=== PATIENT | male | born 1955 | race Caucasian/White ===

== ENCOUNTER 2021-08-01 10:05 | Outpatient (REF) | payer MEDICARE, SELFPAY ==
[2021-08-01 11:07] LABS: Hematocrit 49.1 % (42.0-52.0); Hemoglobin 16.3 g/dl (14.0-18.0); Mean Corpuscular HGB Conc 33.2 g/dl (31.0-36.0); Mean Corpuscular Hemoglobin 30.1 pg (27.0-33.0); Mean Corpuscular Volume 90.8 fL (80.0-98.0); Mean Platelet Volume 9.6 fL (9.4-12.4); Platelet Count 224 X10*3/uL (160-400); Red Blood Count 5.41 X10*6/uL (4.60-5.80); Red Cell Distribution Width 13.3 % (11.0-16.0); White Blood Count 6.8 X10*3/uL (4.8-10.8)
[2021-08-01 11:18] LABS: Appearance Urine CLEAR; Color Urine YELLOW; Glucose Urine UA NEG (NEG); Leukocyte Esterase Urine NEG (NEG); Nitrite Urine NEG (NEG); Urine Blood NEG (NEG); Urine Ketones NEG (NEG); Urine Protein NEG (NEG-TRACE)
[2021-08-01 11:45] LABS: Alanine Aminotransferase 20 U/L (0-40); Alkaline Phosphatase 107 U/L (39-117); Anion Gap 9 (12-20); Aspartate Amino Transferase 17 U/L (5-37); Bilirubin Total 0.7 mg/dL (0.0-1.0); Blood Urea Nitrogen 13 mg/dL (9-16); Calcium 8.6 mg/dL (8.4-10.2); Carbon Dioxide 24 mmol/L (22-29); Chloride 106 mmol/L (96-108); Cholesterol 202 mg/dL; Estimated Glomerular Filt Rate > 60; Glucose Fasting 98 mg/dL (60-99); HDL Cholesterol 34 mg/dL; LDL Cholesterol Calculated 150 mg/dl; Potassium 4.2 mmol/L (3.3-5.1); Sodium 135 mmol/L (135-145); Triglycerides 92 mg/dL
[2021-08-01 11:54] LABS: Prostate Specific Antigen Scr 0.78 ng/mL (<0.05-4.0)
[2021-08-01 12:09] LABS: RBC Urine 0 /HPF (0); WBC Urine 0 /HPF (0-4)
[2021-08-07 14:26] LABS: Testosterone, Free 58.8 pg/mL (35.0-155.0); Testosterone, Total 459 ng/dL (250-1100)
== END 2021-08-01 10:06 | disposition home or self-care (01) ==
LOC: HO.HMGCLDS 10:05
PROVIDERS: PCP Internal Medicine; Visit Provider Internal Medicine
DX: Z12.5 Encounter for screening for malignant neoplasm of prostate (principal); R07.9 Chest pain, unspecified; E78.5 Hyperlipidemia, unspecified; R09.89 Other specified symptoms and signs involving the circulatory and respiratory systems
CPT/HCPCS: 36415; 80053; 80061; 81001; 84153; 84402; 84403; 85027

== ENCOUNTER → 2021-08-21 10:24 | Outpatient (REF) | payer MEDICARE, SELFPAY ==
--- NOTE | ~2021-08-21 | US_ITS ---
EXAMINATION: US EXTRACRANIAL CAROTID DUPLEX, BILATERAL CLINICAL INFORMATION: Hyperlipidemia, unspecified COMPARISON: None TECHNIQUE: Real-time ultrasound and Doppler techniques (integrating B-mode 2-D vascular images, Doppler spectral analysis and color-flow Doppler imaging) were utilized to interrogate the extracranial carotid arteries, the vertebral arteries and proximal subclavian arteries bilaterally. The degree of stenosis is determined by criteria similar to NASCET. FINDINGS: Right Side: 1. There is mild atherosclerotic plaque seen in the bifurcation/proximal ICA region. 2. The common carotid artery PSV proximally is 99 cm/s and distally 82 cm/s. 3. The proximal internal carotid artery velocities are 94 cm/s systolic and 32 cm/s diastolic. 4. The proximal external carotid artery PSV is 157 cm/s. 5. The vertebral artery shows antegrade flow. 6. The subclavian artery waveforms are normal. 7. Adjacent to the proximal right internal carotid artery there is a 2.6 x 0.9 x 1.0 cm lymph node with preserved fatty jamel. Left Side: 1. There is mild atherosclerotic plaque seen in the bifurcation/proximal ICA region. 2. The common carotid artery PSV proximally is 108 cm/s and distally 94 cm/s. 3. The proximal internal carotid artery velocities are 83 cm/s systolic and 87 cm/s diastolic. 4. The proximal external carotid artery PSV is 156 cm/s. 5. The vertebral artery is not visualized. 6. The subclavian artery waveforms are normal. 7. There is a left neck lymph node measuring 2.3 x 0.4 x 1.2 cm. US/US carotid duplex BI IMPRESSION: 1. RIGHT: Minimal, non-hemodynamically significant stenosis of the proximal right internal carotid artery corresponding to a 0-49% stenosis by velocity criteria. 2. LEFT: Minimal, non-hemodynamically significant stenosis of the proximal left internal carotid artery corresponding to a 0-49% stenosis by velocity criteria. 3. The left vertebral artery is not visualized. 4. Nonspecific lymph nodes in the bilateral neck measuring up to 2.6 cm in long axis on the right and 2.3 cm in long axis on the left..
--- NOTE | 2021-08-21 10:41 | CA_ITS ---
Acquisition Time: 2021-08-21 11:36:51 Total Exercise Time: 00:05:01 Test Indications: UNSPECIFIED CHEST PAIN Medications: Protocol: PATI Max HR: 139 BPM 90% of Pred: 154 BPM Max BP: 178/090 mmHG Max Work Load: 7.0 METS Exercise stress test with exercise 5 min 1 sec of Pati protocol, with moderate shortness of breath, 1/10 left chest pressure, with frequent isolated multifocal PVCs, cuplets and one 3 beat VT, with normotensive response to exercise, without EKG changes meeting criteria for ischemia. Test reviewed with Dr Schwab. Msg sent to Dr aMgana with recommendation for exercise nuclear stress test and echocardiogram. Referred By: Gina Magana Overread By: LEONARDO LANDEROS
== END ==
LOC: HO.CARD 10:24
PROVIDERS: PCP Internal Medicine; Visit Provider Internal Medicine
DX: E78.5 Hyperlipidemia, unspecified (principal); R07.9 Chest pain, unspecified; R09.89 Other specified symptoms and signs involving the circulatory and respiratory systems
CPT/HCPCS: 93017; 93880

== ENCOUNTER → 2021-09-20 09:17 | Outpatient (REF) | payer MEDICARE, SELFPAY ==
--- NOTE | ~2021-09-20 | NM_ITS ---
Exercise Myocardial perfusion study Indication: Abnormal EKG to evaluate for myocardial ischemia Technique: The patient was brought in for an exercise perfusion study on 09/20/2021. Patient performed exercise as per Brandin protocol and was injected 35 mCi of sestamibi was given intravenously one target HR was achieved. Images were obtained using the SPECT gamma camera interlaced with the gating device. Images were obtained in supine position. Resting perfusion study was performed on 09/24/2021. Patient was administered 35 mCi of sestamibi intravenously at rest. Images were then obtained in supine position. Images obtained with and without CT attenuation. Total DLP 100 mGy-cm. Images were processed with the software and compared side to side in short axis, horizontal long axis and vertical long axis views. Findings: The stress perfusion study showed non attenuated images are suboptimal due to subdiaphragmatic uptake. However this shows mildly reduced uptake in the moderate basal inferior wall of the LV myocardium. Myocardium normally perfused. Attenuation corrected images show moderately reduced uptake in the inferior wall of the LV myocardium.. The gated study shows reduced LV systolic function with calculated LVEF of 45%. LV cavity is mildly dilated in size. The gated study shows normal wall thickening and contraction of all segments. There is no transient ischemic dilation. Resting study shows nontender images show improved uptake in the basal inferior and mid inferior wall of the LV myocardium. Gating at rest reveals normal systolic wall motion with ejection fraction at 40%. The findings are consistent with reversible defect of the basal inferior wall suggestive of ischemia.. NM/NM cardiolite stress test Impression: 1. Basal inferior ischemia 2. Gated LVEF is 45% 3. Transient ischemic dilatation not present Stress EKG is negative for ischemia
--- NOTE | 2021-09-20 10:00 | CA_ITS ---
Acquisition Time: 2021-09-20 09:49:47 Total Exercise Time: 00:07:10 Test Indications: Hyperlipidemia Medications: Protocol: PATI Max HR: 139 BPM 90% of Pred: 154 BPM Max BP: 172/082 mmHG Max Work Load: 8.8 METS Exercise stress test with exercise 7 min 10 sec of Pati protocol, with moderate shortness of breath, no chest discomfort, with isolated PVCs and one ventricular cuplet ( less PVCs then prior ETT), with nomotensive response response to exercise, without EKG changes meeting criteria for ischemia. Nuclear images pending. Test reviewed with Dr Spann. Referred By: Gina Magana Overread By: LEONARDO LANDEROS
== END ==
LOC: HO.CARD 09:17
PROVIDERS: Visit Provider Internal Medicine
DX: R07.9 Chest pain, unspecified (principal); E78.5 Hyperlipidemia, unspecified; R09.89 Other specified symptoms and signs involving the circulatory and respiratory systems
CPT/HCPCS: 78452; 93017; A9500

== ENCOUNTER 2021-11-29 09:38 | Outpatient (REF) | payer MEDICARE, SELFPAY ==
[2021-11-29 12:28] LABS: Alanine Aminotransferase 20 U/L (0-40); Alkaline Phosphatase 96 U/L (39-117); Anion Gap 8 (12-20); Aspartate Amino Transferase 18 U/L (5-37); Bilirubin Total 0.4 mg/dL (0.0-1.0); Blood Urea Nitrogen 18 mg/dL (9-16); Calcium 8.8 mg/dL (8.4-10.2); Carbon Dioxide 28 mmol/L (22-29); Chloride 106 mmol/L (96-108); Cholesterol 189 mg/dL; Estimated Glomerular Filt Rate > 60; Glucose Fasting 126 mg/dL (60-99); HDL Cholesterol 40 mg/dL; LDL Cholesterol Calculated 139 mg/dl; Potassium 4.6 mmol/L (3.3-5.1); Sodium 137 mmol/L (135-145); Triglycerides 54 mg/dL
== END 2021-11-29 09:39 | disposition home or self-care (01) ==
LOC: HO.HMGCLDS 09:38
PROVIDERS: Visit Provider Internal Medicine
DX: E78.5 Hyperlipidemia, unspecified (principal)
CPT/HCPCS: 36415; 80053; 80061

== ENCOUNTER 2022-03-24 10:37 | Outpatient (REF) | payer MEDICARE, SELFPAY ==
[2022-03-24 11:39] LABS: Estimated Average Glucose 111 mg/dL; Hemoglobin A1C 150.0711 umol/L; Hemoglobin A1c % 5.5 %
[2022-03-24 12:21] LABS: Alanine Aminotransferase 16 U/L (0-40); Albumin Level 4.3 g/dL (3.5-5.0); Alkaline Phosphatase 99 U/L (39-117); Aspartate Amino Transferase 17 U/L (5-37); Bilirubin Direct 0.2 mg/dL (0.0-0.5); Bilirubin Total 0.5 mg/dL (0.0-1.0); Total Protein 7.2 g/dL (6.5-8.0)
[2022-03-24 12:25] LABS: Alanine Aminotransferase 16 U/L (0-40); Albumin Level 4.3 g/dL (3.5-5.0); Alkaline Phosphatase 96 U/L (39-117); Anion Gap 16 (12-20); Aspartate Amino Transferase 17 U/L (5-37); Bilirubin Total 0.5 mg/dL (0.0-1.0); Blood Urea Nitrogen 12 mg/dL (9-16); Calcium 9.1 mg/dL (8.4-10.2); Carbon Dioxide 23 mmol/L (22-29); Chloride 106 mmol/L (96-108); Cholesterol 184 mg/dL; Estimated Glomerular Filt Rate > 60; Glucose Fasting 104 mg/dL (60-99); HDL Cholesterol 45 mg/dL; LDL Cholesterol Calculated 128 mg/dl; Potassium 4.7 mmol/L (3.3-5.1); Sodium 140 mmol/L (135-145); Total Protein 7.3 g/dL (6.5-8.0); Triglycerides 59 mg/dL
== END 2022-03-24 10:38 | disposition home or self-care (01) ==
LOC: HO.HMGCLDS 10:37
PROVIDERS: Absent Provider Podiatrist; PCP Internal Medicine; Visit Provider Internal Medicine
DX: Z00.00 Encounter for general adult medical examination without abnormal findings (principal); B35.1 Tinea unguium; E78.5 Hyperlipidemia, unspecified; R73.9 Hyperglycemia, unspecified
CPT/HCPCS: 36415; 80053; 80061; 80076; 82248; 83036

== ENCOUNTER 2022-09-12 08:54 | Outpatient (REF) | payer MEDICARE, SELFPAY ==
[2022-09-12 11:31] LABS: MANUAL DIFF FLAG NO
[2022-09-12 11:55] LABS: Basophils Absolute Auto 0.1 X10*3/uL (0.0-0.2); Basophils Percent Auto 0.8 % (0-2); Eosinophils Absolute Auto 0.1 X10*3/uL (0.0-0.4); Hematocrit 48.7 % (42.0-52.0); Hemoglobin 16.4 g/dl (14.0-18.0); Imm Gran Abs Auto 0.04 X10*3/uL (0.00-0.03); Imm Gran Pct Auto 0.6 % (0.0-0.4); Lymphocytes Absolute Auto 1.8 X10*3/uL (1.2-4.9); Lymphocytes Percent Auto 26.7 % (20-40); Mean Corpuscular HGB Conc 33.7 g/dl (31.0-36.0); Mean Corpuscular Hemoglobin 30.5 pg (27.0-33.0); Mean Corpuscular Volume 90.5 fL (80.0-98.0); Mean Platelet Volume 9.5 fL (9.4-12.4); Monocytes Absolute Auto 0.4 X10*3/uL (0.1-1.2); Monocytes Percent Auto 6.5 % (2-11); Neutrophils Absolute Auto 4.2 x10*3/uL (2.0-8.3); Neutrophils Percent Auto 63.4 % (45-73); Platelet Count 249 X10*3/uL (160-400); Red Blood Count 5.38 X10*6/uL (4.60-5.80); Red Cell Distribution Width 12.7 % (11.0-16.0); White Blood Count 6.7 X10*3/uL (4.8-10.8)
[2022-09-12 12:02] LABS: Estimated Average Glucose 126 mg/dL
[2022-09-12 12:15] LABS: Alanine Aminotransferase 18 U/L (0-40); Albumin Level 4.3 g/dL (3.5-5.0); Alkaline Phosphatase 93 U/L (39-117); Anion Gap 13 (12-20); Aspartate Amino Transferase 17 U/L (5-37); Bilirubin Total 0.5 mg/dL (0.0-1.0); Blood Urea Nitrogen 14 mg/dL (9-16); Calcium 9.1 mg/dL (8.4-10.2); Carbon Dioxide 24 mmol/L (22-29); Chloride 109 mmol/L (96-108); Cholesterol 164 mg/dL; Estimated Glomerular Filt Rate > 60; Glucose Fasting 124 mg/dL (60-99); HDL Cholesterol 45 mg/dL; LDL Cholesterol Calculated 109 mg/dl; Potassium 4.8 mmol/L (3.3-5.1); Sodium 141 mmol/L (135-145); Triglycerides 50 mg/dL
[2022-09-22 13:08] LABS: Testosterone, Total 399 ng/dL (250-1100)
== END 2022-09-12 08:55 | disposition home or self-care (01) ==
LOC: HO.HMGCLDS 08:54
PROVIDERS: PCP Internal Medicine; Visit Provider Internal Medicine
DX: Z00.00 Encounter for general adult medical examination without abnormal findings (principal); N52.9 Male erectile dysfunction, unspecified; E78.5 Hyperlipidemia, unspecified; R73.9 Hyperglycemia, unspecified
CPT/HCPCS: 36415; 80053; 80061; 83036; 84402; 84403; 85025

== ENCOUNTER 2023-05-18 12:36 | Outpatient (AMB) | payer MEDICARE, SELFPAY ==
--- NOTE | 2023-05-18 12:43 | A.OFFPC_ITS ---
Vital Signs 05/18/23 12:45 Height 6 ft 2 in Weight 229 lb BMI 29.4 BP 124/82 Blood Pressure Location Rt brachial Position Sitting Pulse 64 Pulse Source Pulse Oximeter Pulse Oximetry (%) 97 Oxygen Delivery Method Room Air Intake Visit Reasons: lower back pain Allergies No Known Allergies Allergy (Verified 05/18/23 12:46) Medication List - Last Reconciled 05/18/23 by Gina Magana MD aspirin 81 mg PO DAILY rosuvastatin 40 mg PO DAILY tadalafil (Cialis) 20 mg PO DAILY Tobacco use date assessed: 05/18/23 Fall risk assessment: No Falls in past year Last assessed Fall Risk: 05/18/23 Dental Screening Dental Screen Date: 05/18/23 Did you have a dental visit in the last 12 months?: Yes Did you have a dental problem in the last 6 months where you did not have access to dental care?: No Was dental information given to patient?: Patient has dentist HPI lower back pain HPI Details Pt c/o chronic LBP L side not radiating, getting worse for a few months and when twisting body playing golf, working in the yard, sitting for a long time on plane ride. Patient denies any weakness or numbness in extremities. [facility] Medical History Hyperglycemia Onychomycosis Bilateral carotid bruits Chest pain Hyperlipidemia Otitis externa of left ear Positional vertigo Hypogonadism Annual physical exam Surgical History History of right hip replacement Family History Father No problems noted. Mother No problems noted. Social History Housing: House Patient Tobacco Use Status: Former Tobacco user Quit Date: 14 years ago e-Cigarette/Vaping Use: Never Used Current occupational status: unemployed Cognitive needs: No Hearing needs: No Vision needs: Yes Questionnaire Thrive Questionnaire Date Thrive assessed: 12/04/21 PHIL-7 AMB Questionnaire PHIL-7 Date PHIL - 7 assessed: 12/04/21 Source: Developed by Drs. Ari Wood, Luh Gonzales, Wade Walsh and colleagues, with an educational joel from [employer]. Review of Systems Const All systems reviewed & are unremarkable except as noted in HPI and below Reports no additional complaints Eyes Reports no additional complaints ENT Reports no additional complaints Card Reports no additional complaints Resp Reports no additional complaints GI Reports no additional complaints Reports no additional complaints Physical exam (Primary Care) Vital Signs: Last Vital Signs Pulse 64 05/18/23 12:45 BP 124/82 05/18/23 12:45 Pulse Ox 97 05/18/23 12:45 Oxygen Delivery Method Room Air 05/18/23 12:45 BMI result Body Mass Index 29.4 Tobacco/Smoking Status: Tobacco use Status Tobacco use date assessed 05/18/23 05/18/23 12:49 Patient Tobacco Use Status Former Tobacco user 05/18/23 12:43 e-Cigarette/Vaping Use Never Used 05/18/23 12:43 Thrive Assessment: Date of Thrive Assessment Date Thrive assessed 12/04/21 05/18/23 12:43 Const General: no acute distress HENMT Head: Yes normal to inspection General nose exam: Normal external nose present Face and sinus: Yes normal facial exam Throat: Yes posterior oropharynx normal Neck Neck: Yes no lymphadenopathy and Yes supple Resp Effort & Inspection: normal respiratory effort Auscultation: clear to auscultation bilaterally Cardio Rhythm: regular rhythm Heart sounds: S1 normal heart sound present and S2 normal heart sound present GI Inspection: Yes normal to inspection Back/Spine/Pelvis Other: Paraspinal tenderness in lower lumbar region right more than left again, straight leg rising 90 degrees bilaterally. Deep tendon reflexes 2+ bilaterally, motor strength 5/5 bilaterally Extrem General: Yes no clubbing, cyanosis or edema Assessment and Plan Assessment & Plan (1) Lower back pain: Code(s): M54.50 - Low back pain, unspecified Plan: Patient will be referred to physical therapy. He made an appointment with a chiropractor. Orders: Orders XR lumbar spine 2-3V Today M54.50 - Low back pain, unspecified PT Evaluation and Treatment Today M54.50 - Low back pain, unspecified Coding Level of Care Code Est Pt Level 3 (91761) Diagnoses Lower back pain M54.50
[2023-05-18 12:45] VITALS: BP 124/82; PULSE 64; O2SAT 97; BMI 29.4
== END 2023-05-18 13:38 | disposition home or self-care (01) ==
PROVIDERS: PCP Internal Medicine; Visit Provider Internal Medicine
DX: M54.50 Low back pain, unspecified (principal)
CPT/HCPCS: 99213

== ENCOUNTER 2023-05-18 13:24 | Outpatient (REF) | payer MEDICARE, SELFPAY ==
--- NOTE | ~2023-05-18 | XR_ITS ---
EXAMINATION: XR LUMBOSACRAL SPINE CLINICAL INFORMATION: Low back pain COMPARISON: None available. TECHNIQUE: Three views of the lumbosacral spine. FINDINGS: Large osteophytes are present at L2-L3, L3-L4 and L5-S1. Disc space narrowing is present at almost all levels. Vertebral body heights are well-maintained. No bony destructive lesions are seen. A right hip prosthesis is present. XR/XR lumbar spine 2-3V IMPRESSION: Degenerative changes in the lumbosacral spine as described above.
== END 2023-05-18 13:25 | disposition home or self-care (01) ==
LOC: HO.HMGCX 13:24
PROVIDERS: PCP Internal Medicine; Visit Provider Internal Medicine
DX: M54.50 Low back pain, unspecified (principal)
CPT/HCPCS: 72100

== ENCOUNTER 2024-06-03 12:55 | Outpatient (AMB) | payer MEDICARE, SELFPAY ==
--- NOTE | 2024-06-03 13:21 | MHC.PC.OV ---
Vital Signs 06/03/24 13:22 Height 6 ft 2 in Weight 233 lb BMI 29.9 BP 125/78 Blood Pressure Location Rt brachial Position Sitting Pulse 67 Pulse Source Pulse Oximeter Pulse Oximetry (%) 97 Oxygen Delivery Method Room Air Intake Visit Reasons: Annual PE Intake Note: pt is here for annual exam Allergies No Known Allergies Allergy (Verified 06/03/24 13:22) Medication List - Last Reconciled 06/03/24 by Gina Magana MD aspirin 81 mg PO DAILY rosuvastatin 40 mg PO DAILY tadalafil (Cialis) 20 mg PO DAILY Tobacco use date assessed: 06/03/24 Fall risk assessment: No Falls in past year Last assessed Fall Risk: 06/03/24 Dental Screening Dental Screen Date: 06/03/24 Did you have a dental visit in the last 12 months?: Yes Did you have a dental problem in the last 6 months where you did not have access to dental care?: No Was dental information given to patient?: Patient has dentist HPI Annual PE HPI Details Pt presents for PE. [facility] Medical History Hyperglycemia Onychomycosis Bilateral carotid bruits Chest pain Hyperlipidemia Otitis externa of left ear Positional vertigo Hypogonadism Annual physical exam Surgical History (Updated 06/03/24 @ 14:52 by Gina Magana MD) History of right hip replacement Family History Father No problems noted. Mother No problems noted. Social History Housing: House Patient Tobacco Use Status: Former Tobacco user e-Cigarette/Vaping Use: Never Used Current occupational status: unemployed Cognitive needs: No Hearing needs: No Vision needs: Yes Questionnaire Thrive Questionnaire Date Thrive assessed: 12/04/21 PHIL-7 AMB Questionnaire PHIL-7 Date PHIL - 7 assessed: 12/04/21 Source: Developed by Drs. Ari Wood, Luh Gonzales, Wade Walsh and colleagues, with an educational joel from [employer] Review of Systems Const All systems reviewed & are unremarkable except as noted in HPI and below Reports no additional complaints Eyes Reports no additional complaints ENT Reports no additional complaints Card Reports no additional complaints Resp Reports no additional complaints GI Reports no additional complaints Reports no additional complaints Physical exam (Primary Care) Vital Signs: Last Vital Signs Pulse 67 06/03/24 13:22 BP 140/78 H 06/03/24 13:22 Pulse Ox 97 06/03/24 13:22 Oxygen Delivery Method Room Air 06/03/24 13:22 BMI result Body Mass Index 29.9 Tobacco/Smoking Status: Tobacco use Status Tobacco use date assessed 06/03/24 06/03/24 13:23 Patient Tobacco Use Status Former Tobacco user 06/03/24 13:23 e-Cigarette/Vaping Use Never Used 06/03/24 13:23 Thrive Assessment: Date of Thrive Assessment Date Thrive assessed 12/04/21 06/03/24 13:23 Const General: no acute distress HENMT Head: Yes normal to inspection General nose exam: Normal external nose present Face and sinus: Yes normal facial exam Mouth: Normal oral and palatal mucosa present Throat: Yes posterior oropharynx normal Eyes General: appearance normal, both eyes and all related structures Neck Neck: Yes no lymphadenopathy and Yes supple Resp Effort & Inspection: normal respiratory effort Auscultation: clear to auscultation bilaterally Cardio Rhythm: regular rhythm Heart sounds: S1 normal heart sound present and S2 normal heart sound present GI Inspection: Yes normal to inspection Palpation (GI): Soft to palpation Percussion: Yes normal to percussion Auscultation: normal bowel sounds Coding Level of Care Code Est Pt Prev Care >65y(05557) Diagnoses Annual physical exam Z00.00 Hyperlipidemia E78.5 Hyperglycemia R73.9 Hypogonadism Hx of colonoscopy Z98.890 Assessment & Plan Assessment & Plan (1) Annual physical exam: Code(s): Z00.00 - Encounter for general adult medical examination without abnormal findings Category: Medical Plan: well balanced diet, regular exercise, weight loss discussed (2) Hyperlipidemia: Code(s): E78.5 - Hyperlipidemia, unspecified Category: Medical Plan: Continue statin (3) Hyperglycemia: Code(s): R73.9 - Hyperglycemia, unspecified Category: Medical Plan: ADA diet increase exercise weight loss discussed with the patient check A1c (4) Hypogonadism: Category: Medical Plan: check testosterone level (5) Hx of colonoscopy: Comment: 12/2022 1 polyp serrated adenoma, repeat 5 yrs, [facility] Code(s): Z98.890 - Other specified postprocedural states Category: Surgical Plan: Repeat colonoscopy in 4 yrs Orders: Orders Comprehensive [place]. Panel Fast Today E78.5 - Hyperlipidemia, unspecified, R73.9 - Hyperglycemia, unspecified, Z00.00 - Encounter for general adult medical examination without abnormal findings Hemoglobin A1c Today E78.5 - Hyperlipidemia, unspecified, R73.9 - Hyperglycemia, unspecified, Z00.00 - Encounter for general adult medical examination without abnormal findings PSA,Total (Free>4and<10) Today E78.5 - Hyperlipidemia, unspecified, R73.9 - Hyperglycemia, unspecified, Z00.00 - Encounter for general adult medical examination without abnormal findings UA w Microscopic Today E78.5 - Hyperlipidemia, unspecified, R73.9 - Hyperglycemia, unspecified, Z00.00 - Encounter for general adult medical examination without abnormal findings Testosterone, Free/Total Today Z00.00 - Encounter for general adult medical examination without abnormal findings Lipid Panel Today E78.5 - Hyperlipidemia, unspecified, R73.9 - Hyperglycemia, unspecified, Z00.00 - Encounter for general adult medical examination without abnormal findings Complete Blood Count Auto Diff Today E78.5 - Hyperlipidemia, unspecified, R73.9 - Hyperglycemia, unspecified, Z00.00 - Encounter for general adult medical examination without abnormal findings
[2024-06-03 13:22] VITALS: BP 125/78; PULSE 67; O2SAT 97; BMI 29.9
== END 2024-06-03 13:55 | disposition home or self-care (01) ==
LOC: HO.HMCC 12:55
PROVIDERS: PCP Internal Medicine; Visit Provider Internal Medicine
DX: Z00.00 Encounter for general adult medical examination without abnormal findings (principal); E78.5 Hyperlipidemia, unspecified; R73.9 Hyperglycemia, unspecified; Z98.890 Other specified postprocedural states

== ENCOUNTER → 2024-06-03 12:55 | Outpatient (BNVA) | payer MEDICARE, SELFPAY | PROVIDERS: PCP Internal Medicine; Visit Provider Internal Medicine | DX: Z00.01 Encounter for general adult medical examination with abnormal findings (principal); E78.5 Hyperlipidemia, unspecified; R73.9 Hyperglycemia, unspecified; Z98.890 Other specified postprocedural states | CPT/HCPCS: 99397 ==

== ENCOUNTER 2024-06-10 09:31 | Outpatient (REF) | payer MEDICARE, SELFPAY ==
[2024-06-10 10:10] LABS: Basophils Percent Auto 0.6 % (0-2); Eosinophils Absolute Auto 0.2 X10*3/uL (0.0-0.4); Eosinophils Percent Auto 3.4 % (0-4); Hematocrit 43.7 % (42.0-52.0); Hemoglobin 14.7 g/dl (14.0-18.0); Imm Gran Abs Auto 0.03 X10*3/uL (0.00-0.03); Imm Gran Pct Auto 0.4 % (0.0-0.4); Lymphocytes Absolute Auto 2.4 X10*3/uL (1.2-4.9); Lymphocytes Percent Auto 35.8 % (20-40); MANUAL DIFF FLAG NO; Mean Corpuscular HGB Conc 33.6 g/dl (31.0-36.0); Mean Corpuscular Hemoglobin 31.1 pg (27.0-33.0); Mean Corpuscular Volume 92.6 fL (80.0-98.0); Mean Platelet Volume 9.2 fL (9.4-12.4); Monocytes Absolute Auto 0.6 X10*3/uL (0.1-1.2); Monocytes Percent Auto 8.5 % (2-11); Neutrophils Absolute Auto 3.5 x10*3/uL (2.0-8.3); Neutrophils Percent Auto 51.3 % (45-73); Platelet Count 220 X10*3/uL (160-400); Red Blood Count 4.72 X10*6/uL (4.60-5.80); Red Cell Distribution Width 12.8 % (11.0-16.0); White Blood Count 6.7 X10*3/uL (4.8-10.8)
[2024-06-10 10:49] LABS: Appearance Urine Clear; Color Urine Yellow; Glucose Urine UA Negative (Negative); Leukocyte Esterase Urine Negative (Negative); Nitrite Urine Negative (Negative); Specific Gravity - Urine 1.015 (1.005-1.025); Urine Blood Negative (Negative); Urine Ketones Negative (Negative); Urine Protein Negative (Neg-Trace)
[2024-06-10 10:53] LABS: Bacteria Urine None Seen (None Seen); Hyaline Casts Urine 0-2 /LPF (0-2); RBC Urine 0-2 /HPF (0-2); Squamous Epithelial Cell Urine 0-2 /HPF (0-2); WBC Urine 0-5 /HPF (0-5)
[2024-06-10 11:26] LABS: Alanine Aminotransferase 21 U/L (0-40); Albumin Level 4.1 g/dL (3.5-5.0); Alkaline Phosphatase 80 U/L (39-117); Anion Gap 12 (12-20); Aspartate Amino Transferase 22 U/L (5-37); Bilirubin Total 0.4 mg/dL (0.0-1.0); Blood Urea Nitrogen 11 mg/dL (9-16); Carbon Dioxide 25 mmol/L (22-29); Chloride 108 mmol/L (96-108); Cholesterol 144 mg/dL (<200); Estimated Glomerular Filt Rate > 60; Glucose Fasting 116 mg/dL (60-99); HDL Cholesterol 36 mg/dL (>40); LDL Cholesterol Calculated 89 mg/dL (<100); Potassium 4.3 mmol/L (3.3-5.1); Sodium 141 mmol/L (135-145); Total Protein 7.1 g/dL (6.5-8.0); Triglycerides 98 mg/dL (<150)
[2024-06-10 12:03] LABS: PSA,Total (Free>4and<10) 0.47 ng/mL (0.00-4.00)
[2024-06-10 14:25] LABS: Estimated Average Glucose 126 mg/dL; Hemoglobin A1C 162.5643 umol/L; Total Hemoglobin (HGBA1C) 3910.4166 umol/L
[2024-06-16 21:23] LABS: Testosterone, Free 39.7 pg/mL (35.0-155.0); Testosterone, Total 274 ng/dL (250-1100)
== END 2024-06-10 09:32 | disposition home or self-care (01) ==
LOC: HO.LAB 09:31
PROVIDERS: PCP Internal Medicine; Visit Provider Internal Medicine
DX: Z00.00 Encounter for general adult medical examination without abnormal findings (principal); E78.5 Hyperlipidemia, unspecified; R73.9 Hyperglycemia, unspecified; Z12.5 Encounter for screening for malignant neoplasm of prostate
CPT/HCPCS: 36415; 80053; 80061; 81001; 83036; 84153; 84402; 84403; 85025

== ENCOUNTER 2025-06-22 10:54 | Outpatient (REF) | payer MEDICARE, SELFPAY ==
[2025-06-22 13:00] LABS: MANUAL DIFF FLAG NO
[2025-06-22 13:15] LABS: Hematocrit 45.6 % (42.0-52.0); Hemoglobin 15.2 g/dl (14.0-18.0); Imm Gran Abs Auto 0.03 X10*3/uL (0.00-0.03); Imm Gran Pct Auto 0.4 % (0.0-0.4); Lymphocytes Absolute Auto 2.8 X10*3/uL (1.2-4.9); Mean Corpuscular HGB Conc 33.3 g/dl (31.0-36.0); Mean Corpuscular Hemoglobin 31.5 pg (27.0-33.0); Mean Corpuscular Volume 94.6 fL (80.0-98.0); NRBC Abs Auto 0.000 X10*3/uL (0.0-0.012); NRBC Pct Auto 0.0 /100WBC (0.0-0.2); Platelet Count 215 X10*3/uL (160-400); Red Blood Count 4.82 X10*6/uL (4.60-5.80); White Blood Count 6.8 X10*3/uL (4.8-10.8)
[2025-06-22 13:35] LABS: Alanine Aminotransferase 26 U/L (0-40); Albumin Level 4.5 g/dL (3.5-5.0); Alkaline Phosphatase 85 U/L (39-117); Anion Gap 11 (12-20); Aspartate Amino Transferase 27 U/L (5-37); Blood Urea Nitrogen 15 mg/dL (9-16); Calcium 9.0 mg/dL (8.4-10.2); Carbon Dioxide 26 mmol/L (22-29); Chloride 109 mmol/L (96-108); Cholesterol 132 mg/dL (<200); Estimated Glomerular Filt Rate > 60; HDL Cholesterol 38 mg/dL (>40); Potassium 4.8 mmol/L (3.3-5.1); Sodium 141 mmol/L (135-145); Total Protein 7.3 g/dL (6.5-8.0); Triglycerides 105 mg/dL (<150)
[2025-06-22 13:37] LABS: Appearance Urine Clear; Glucose Urine UA Negative (Negative); PH 5.0 (5.0-9.0); Specific Gravity - Urine 1.020 (1.005-1.025)
[2025-06-22 14:13] LABS: PSA,Total (Free>4and<10) 0.52 ng/mL (0.00-4.00)
--- OUTSIDE RECORDS SUMMARY | 2025-06-22 17:58 | XMS_ITS | Data Portability ---
Author Organization [facility] Pain Managem ent, PAIN OFFICE Address [address] [facility] [place] [address] Care Team Providers Care Control Inspector Name Role Phone ROSSYazJALIL Primary Care Provider [phone] Assessment Encounter Date Assessment Date Assessment LastModified [...] booked for the same. He needs a electric mule driver on the day of the procedure. [...] By Organization Details Last Modified Time 10/12/2015 [id number] He was advised against bed rest lasting longer than four days and to continue activities as tolerated. [email or web address] Not available 10/15/2015 11:38:02 Reason for Referral None Reported. Problems Name Problem SNOMED Code Status Onset Date Resolution Date Notes Provider Name and Address Organization Details Recorded Time Pain of hip region 30759829 Active Robina zavala MD [address] [facility] , [address], [place], [address], [place] [facility] 6 11:39:07 Osteoarthritis of hip 948975509 Active Robina zavala MD [address] [facility] , [address], [place], [address] [place] [facility] 6 11:39:07 [...] Updated DateTime 10/12/2015 27 kg/m2 68 /min 27249.39 77 g 187.96 cm 135/80 mm[Hg] Maris Hardingzier [place] [facility] 10/12/2015 09:51:14 Social History Question Answer Notes LastModified by Organizat ion Details LastModified Time Tobacco Smoking Status Former Smoker Quit x 8 years Not Available [employer] 05/18/2020 03:16:10 Which Illicit Or Recreational Drugs Have You Used? No [id number] Information not available 05/18/2020 Education 12 With Some College [employer] [place] Information not available 10/12/2015 Live Alone Or With Others? Alone [place] Information not available 10/12/2015 Marital Status [employer] [place] [employer] not available 10/12/2015 How Many Years Have You Smoked Tobacco? 30 [id number] Information not available 05/18/2020 Sex: Unknown Functional Status Question Answer Note LastModified by Organization D etails LastModified Time What is your level of alcohol consumption? None [id number] Information not available 05/18/2020 Are you currently employed? No [id number] Information not available 05/18/2020 Mental Status None recorded. Family History Nothing Reported. Medical History Condition Response Arthritis Y Past Encounters Encounter ID Performer Location Encounter Start Date Encounter Closed Date Diagnosis/Indication Diagnosis SNOMED-CT Code Diagnosis ICD10 Code Diagnosis IMO Codes Diagnosis Note [id number] Robina Lee MD PAIN OFFICE [address] [place] [phone] 10/12/2015 09:30:25 10/15/2015 11:39:22 Osteoarthritis of hip 701606225 M16.0 Pain of hip region 98016 002 M25.551 Health Concerns Section Related Observation LastModified by Organization Detai ls LastModified Time None Recorded Concern Status LastModified by Organization Details LastModified Time None Recorded Advance Directives Directive None Recorded Payers Insurance Date Sequence Insurance Name Policy Number Policy Thakkar Covered Member ID Thakkar Member ID Guarantor Name 10/21/[address] [place] [address] [id number] Amando Borges [id number] Amando Borges Notes Date Note Type Note [...] pain for which he had surgery at [facility] with good resolution of symptoms. He [...] prescription for meloxicam yet. Robina Lee MD [address] [place] [address] , [address], [place], [address], [facility] 10/19/2015 09:34:39
[2025-06-30 21:38] LABS: Testosterone, Free 56.3 pg/mL (30.0-135.0)
== END 2025-06-22 10:55 | disposition home or self-care (01) ==
LOC: HO.HMGCLDS 10:54
PROVIDERS: PCP Internal Medicine; Visit Provider Internal Medicine
DX: Z00.00 Encounter for general adult medical examination without abnormal findings (principal); E78.5 Hyperlipidemia, unspecified; R73.9 Hyperglycemia, unspecified; Z98.890 Other specified postprocedural states; Z12.5 Encounter for screening for malignant neoplasm of prostate
CPT/HCPCS: 36415; 80053; 80061; 81001; 83036; 84153; 84402; 84403; 84443; 85025; 96127; 99397

== ENCOUNTER 2025-06-22 10:54 | Outpatient (AMB) | payer MEDICARE, SELFPAY ==
[2025-06-22 11:01] VITALS: BP 130/76; PULSE 80; O2SAT 97; BMI 29.5
--- NOTE | 2025-06-22 11:01 | MHC.PC.OV ---
Vital Signs 06/22/25 11:01 Height 6 ft 2 in Weight 230 lb BMI 29.5 BP 130/76 Blood Pressure Location Lt brachial Position Sitting Pulse 80 Pulse Source Pulse Oximeter Pulse Oximetry (%) 97 Oxygen Delivery Method Room Air Intake Visit Reasons: Annual PE Allergies No Known Allergies Allergy (Verified 06/22/25 11:02) Medication List - Last Reconciled 06/22/25 by Gina Magana MD aspirin 81 mg PO DAILY rosuvastatin 40 mg PO DAILY tadalafil (Cialis) 20 mg PO DAILY Tobacco use date assessed: 06/22/25 Fall risk assessment: No Falls in past year Last assessed Fall Risk: 06/22/25 Dental Screening Dental Screen Date: 06/22/25 Did you have a dental visit in the last 12 months?: Yes Did you have a dental problem in the last 6 months where you did not have access to dental care?: No Was dental information given to patient?: Patient has dentist HPI Annual PE HPI Details Patient presents for physical. He complains of general fatigue decreased sexual drive low energy level. Patient is concerned about low testosterone level. [facility] Medical History Hyperglycemia Onychomycosis Bilateral carotid bruits Chest pain Hyperlipidemia Otitis externa of left ear Positional vertigo Hypogonadism Annual physical exam Surgical History History of right hip replacement Family History Father No problems noted. Mother No problems noted. Social History Housing: House Patient Tobacco Use Status: Former Tobacco user e-Cigarette/Vaping Use: Never Used Current occupational status: unemployed Cognitive needs: No Hearing needs: No Vision needs: Yes Questionnaire PHQ-9 Over the last 2 weeks, how often have you been bothered by any of the following problems? 1. Little interest or pleasure in doing things: not at all 2. Feeling down, depressed, or hopeless: not at all 3. Trouble falling or staying asleep, or sleeping too much: not at all 4. Feeling tired or having little energy: not at all 5. Poor appetite or overeating: not at all 6. Feeling bad about yourself - or that you are a failure or have let yourself or your family down: not at all 7. Trouble concentrating on things, such as reading the newspaper or watching television: not at all 8. Moving or speaking so slowly that other people could have noticed. Or the opposite - being so fidgety or restless that you have been moving around a lot more than usual: not at all 9. Thoughts that you would be better off or of hurting yourself in some way: not at all Total score: 0 Depression Screening Interpretation: Negative Depression Screening Done: Yes 26824 - PHQ-9 Billing: Yes Source: Developed by Drs. Ari Wood, Luh Gonzales, Wade Walsh and colleagues, with an educational joel from [employer]. Thrive Questionnaire Date Thrive assessed: 06/22/25 I am a: Patient What is your living situation today?: I have a steady place to live Within the past 12 months, did the food you bought not last and you didn't have the money to get more?: Never true Within the past 12 months, did you worry whether your food would run out before you got money to buy more?: Never true Do you have trouble paying for medicines?: No Do you have trouble getting transportation to medical appointments?: No Do you have trouble paying your heating and electricity bill?: No Do you have trouble taking care of your child, family member or friend?: No Do you have trouble with day-to-day activities such as bathing, preparing meals, shopping, managing finances, etc.?: No Are you currently unemployed and looking for a job?: No Are you interested in more education?: No Please select the resources that you would like help with: None Currently or been in a relationship where the following occur: No concerns reported THRIVE Score: 0 AUDIT C Alcohol Use Questionnaire (AUDIT-C) 1. How often do you have a drink containing alcohol?: 2-4 times a month 2. How many drinks containing alcohol do you have on a typical day when you are drinking?: 1 or 2 3. How often do you have six or more drinks on one occasion?: Never Total Score: 2 Score Reviewed/Action Taken: Yes PHIL-7 AMB Questionnaire PHIL-7 Date PHIL - 7 assessed: 06/22/25 Feeling nervous, anxious, or on edge: 0 = Not at all Not being able to stop or control worryin = Not at all Worrying too much about different things: 0 = Not at all Trouble relaxin = Not at all Being so restless that it is hard to sit still: 0 = Not at all Becoming easily annoyed or irritable: 0 = Not at all Feeling afraid as if something awful might happen: 0 = Not at all Total PHIL-7 score (0-4 normal; 5-9 mild; 10-14 moderate; 15-21 severe): 0 Source: Developed by Drs. Ari Wood, Luh Gonzales, Wade Walsh and colleagues, with an educational joel from [employer]. PHIL-7 Assessment Billing PHIL-7 Assessment Tool: PHIL-7 Assessment 68629 Review of Systems Const All systems reviewed & are unremarkable except as noted in HPI and below Eyes Reports no additional complaints ENT Reports no additional complaints Card Reports no additional complaints Resp Reports no additional complaints GI Reports no additional complaints Reports no additional complaints Physical exam (Primary Care) Vital Signs: Last Vital Signs Pulse 80 06/22/25 11:01 BP 130/76 06/22/25 11:01 Pulse Ox 97 06/22/25 11:01 Oxygen Delivery Method Room Air 06/22/25 11:01 BMI result Body Mass Index 29.5 Tobacco/Smoking Status: Tobacco use Status Tobacco use date assessed 06/22/25 06/22/25 11:04 Patient Tobacco Use Status Former Tobacco user 06/22/25 11:04 e-Cigarette/Vaping Use Never Used 06/22/25 11:04 PHQ-9: PHQ-9 Score PHQ-9: Total score 0 06/22/25 11:04 Depression Screening Interpretation: Negative Thrive Assessment: Date of Thrive Assessment Date Thrive assessed 06/22/25 06/22/25 11:04 Currently or been in a relationship where the following occur: No concerns reported Const General: no acute distress HENMT Head: Yes normal to inspection Eyes General: appearance normal, both eyes and all related structures Neck Neck: Yes supple Resp Effort & Inspection: normal respiratory effort Auscultation: clear to auscultation bilaterally Cardio Rhythm: regular rhythm Heart sounds: S1 normal heart sound present and S2 normal heart sound present GI Inspection: Yes normal to inspection Palpation (GI): Soft to palpation Percussion: Yes normal to percussion Auscultation: normal bowel sounds Coding Level of Care Code Est Pt Prev Care >65y(07028) Diagnoses Hyperglycemia R73.9 Hyperlipidemia E78.5 Hx of colonoscopy Z98.890 Annual physical exam Z00.00 Hypogonadism Additional Codes PHIL-7 Assessment Billing - PHIL-7 Assessment Tool: PHIL-7 Assessment 39437 ([id number]) PHQ-9 - 03563 - PHQ-9 Billing: Yes ([id number]) Assessment & Plan Assessment & Plan (1) Hyperglycemia: Code(s): R73.9 - Hyperglycemia, unspecified Category: Medical Plan: Patient will have fasting blood work including A1c, ADA diet increase exercise weight loss discussed with the patient (2) Hyperlipidemia: Code(s): E78.5 - Hyperlipidemia, unspecified Category: Medical Plan: Continue Crestor (3) Hx of colonoscopy: Comment: 12/2022 1 polyp serrated adenoma, repeat 5 yrs, [facility] Code(s): Z98.890 - Other specified postprocedural states Category: Surgical Plan: Follow-up with GI (4) Annual physical exam: Code(s): Z00.00 - Encounter for general adult medical examination without abnormal findings Category: Medical Plan: Well-balanced diet regular physical activity discussed with the patient. (5) Hypogonadism: Category: Medical Plan: Check testosterone level. Patient is interested in starting testosterone replacement gel if the level is low Orders: Orders Complete Blood Count Auto Diff Today E78.5 - Hyperlipidemia, unspecified, R73.9 - Hyperglycemia, unspecified, Z98.890 - Other specified postprocedural states Lipid Panel Today E78.5 - Hyperlipidemia, unspecified, R73.9 - Hyperglycemia, unspecified, Z98.890 - Other specified postprocedural states Hemoglobin A1c Today E78.5 - Hyperlipidemia, unspecified, R73.9 - Hyperglycemia, unspecified, Z98.890 - Other specified postprocedural states UA w Microscopic Today E78.5 - Hyperlipidemia, unspecified, R73.9 - Hyperglycemia, unspecified, Z98.890 - Other specified postprocedural states Testosterone, Free/Total Today E78.5 - Hyperlipidemia, unspecified, R73.9 - Hyperglycemia, unspecified, Z98.890 - Other specified postprocedural states Comprehensive [place]. Panel Fast 1 Year R73.9 - Hyperglycemia, unspecified, Z00.00 - Encounter for general adult medical examination without abnormal findings Complete Blood Count Auto Diff 1 Year R73.9 - Hyperglycemia, unspecified, Z00.00 - Encounter for general adult medical examination without abnormal findings UA w Microscopic 1 Year R73.9 - Hyperglycemia, unspecified, Z00.00 - Encounter for general adult medical examination without abnormal findings TSH reflex Free T4 Today R73.9 - Hyperglycemia, unspecified Comprehensive [place]. Panel Fast Today E78.5 - Hyperlipidemia, unspecified, R73.9 - Hyperglycemia, unspecified, Z98.890 - Other specified postprocedural states PSA,Total (Free>4and<10) Today Z00.00 - Encounter for general adult medical examination without abnormal findings Lipid Panel 1 Year R73.9 - Hyperglycemia, unspecified, Z00.00 - Encounter for general adult medical examination without abnormal findings PSA,Total (Free>4and<10) 1 Year R73.9 - Hyperglycemia, unspecified, Z00.00 - Encounter for general adult medical examination without abnormal findings TSH reflex Free T4 1 Year R73.9 - Hyperglycemia, unspecified, Z00.00 - Encounter for general adult medical examination without abnormal findings Testosterone, Free/Total 1 Year R73.9 - Hyperglycemia, unspecified, Z00.00 - Encounter for general adult medical examination without abnormal findings
--- OUTSIDE RECORDS SUMMARY | 2025-06-22 16:28 | XMS_ITS | Data Portability ---
Author Organization [facility] Pain Managem ent, PAIN OFFICE Address [address] [place] [address] Care Team Providers Care Bank Credit Card Collection Clerk Name Role Phone ROSSYazJALIL Primary Care Provider [phone] Assessment Encounter Date Assessment Date Assessment LastModified by Organization Details LastModified Time 10/12/2015 10/12/2015 Amando Borges is a 60year old man with pain in his right groin region. On exam ,he has pain on abduction of his right hip. Cal's test is positive on the right indicative of right hip pathology.Xray of the right hip shows moderate degenerative changes. Trial of Right hip steroid injection under fluroscopic guidance was recommended. The risks and benefits of the procedure were discussed in detail. He wishes to proceed. An appointment has been booked for the same. He needs a sprinkler truck driver on the day of the procedure. [email or web address] Not available 10/15/2015 11:38:02 Plan of Treatment Reminders Order Date Submit Date Provider Last Modified By Organization Details Last Modified Time Details Appointments None record ed. Lab None record ed. Referral None record ed. Procedures None record ed. Surgeries None record ed. Imaging None record ed. Medication Orders None record ed. Patient TargetsNo targets recorded. Patient Instructions Encounter Date Encounter Id Patient Instructions Last Modified By Organization Details Last Modified Time 10/12/2015 [id number] He was advised against bed rest lasting longer than four days and to continue activities as tolerated. [email or web address] Not available 10/15/2015 11:38:02 Reason for Referral None Reported. Problems Name Problem SNOMED Code Status Onset Date Resolution Date Notes Provider Name and Address Organization Details Recorded Time Pain of hip region 85035238 Active Robina zavala MD [address] [facility] , [address], [place], [address], [place] [facility] 6 11:39:07 Osteoarthritis of hip 760040937 Active Robina zavala MD [address] [facility] , [address], [place], [address] [place] [facility] 6 11:39:07 Problem Notes None recorded. Procedures Surgical History Date Name Laterality Status Provider Name and Address Organization Details Recorded Time Lumbar Microdiskectomy completed Maris Hardingzier [facility] 10/12/2015 09:58:00 Hernia Repair completed Maris Hardingzier [facility] 10/12/2015 09:58:00 Other completed Maris Hardingzijennifer [facility] 10/12/2015 09:58:00 Other completed Maris Patten [place] [facility] 10/12/2015 09:58:00 Imaging Results None recorded. Procedure Notes None recorded. Medical Equipment None Reported. Allergies No known drug allergies Medications Name Sig Start Date Stop Date Status Note LastModified by Organization Details LastModified Time meclizine hcl 25 mg tabs active Not Available Not Available N ot Available triamcinolone acetonide 0.1 % crea active Not Available Not Available Not Available clindamycin hcl 150 mg caps active Not Available Not Available Not Available aspirin ec low dose 81 mg tbec active Not Available Not Availa ble Not Available anucort-hc 25 mg supp active Not Available Not Available Not Available albenza 200 mg tabs active Not Available Not Available Not Available Anucort-HC 25 mg suppository active Not Available Not Availab le Not Available clindamycin HCl 150 mg capsule active Not Available Not Availab le Not Available Motrin IB 200 mg tablet Take 1 tablet every 6 hours by oral route. active Not Available Not Available No t Available aspirin 81 mg tablet,delayed release active Not Available Not Available Not Available triamcinolone acetonide 0.1 % topical cream active Not Available Not Availabl e Not Available meclizine 25 mg tablet active Not Available Not Available Not Available Albenza 200 mg tablet active Not Available Not Available Not Available Vitals Date Recorded Body mass index (BMI) Heart rate Body weight Body height Systolic And Diastolic Provider Name and Address Organization Details Last Updated DateTime 10/12/2015 27 kg/m2 68 /min 25836.39 77 g 187.96 cm 135/80 mm[Hg] Maris Hardingzier [place] [facility] 10/12/2015 09:51:14 Social History Question Answer Notes LastModified by Organizat ion Details LastModified Time Tobacco Smoking Status Former Smoker Quit x 8 years Not Available [employer] 05/18/2020 03:16:10 Which Illicit Or Recreational Drugs Have You Used? No [id number] Information not available 05/18/2020 Education 12 With Some College [employer] [place] [employer] Information not available 10/12/2015 Live Alone Or With Others? Alone [place] [facility] Information not available 10/12/2015 Marital Status [place] [facility] Informatio n not available 10/12/2015 How Many Years Have You Smoked Tobacco? 30 [id number] Information not available 05/18/2020 Sex: Unknown Functional Status Question Answer Note LastModified by Organization D etails LastModified Time What is your level of alcohol consumption? None [id number] Information not available 05/18/2020 Are you currently employed? No [id number] Information not available 05/18/2020 Mental Status None recorded. Family History Nothing Reported. Medical History Condition Response Arthritis Y Past Encounters Encounter ID Performer Location Encounter Start Date Encounter Closed Date Diagnosis/Indication Diagnosis SNOMED-CT Code Diagnosis ICD10 Code Diagnosis IMO Codes Diagnosis Note [id number] Robina Lee MD PAIN OFFICE [address] [place] [phone] 10/12/2015 09:30:25 10/15/2015 11:39:22 Osteoarthritis of hip 524107623 M16.0 Pain of hip region 78599 002 M25.551 Health Concerns Section Related Observation LastModified by Organization Detai ls LastModified Time None Recorded Concern Status LastModified by Organization Details LastModified Time None Recorded Advance Directives Directive None Recorded Payers Insurance Date Sequence Insurance Name Policy Number Policy Thakkar Covered Member ID Thakkar Member ID Guarantor Name 10/21/[address] [place] [address] [id number] Amando Borges [id number] Amando Borges Notes Date Note Type Note Provider Name and Address Organization Details Recorded Time 10/12/2015 text/html Amando Borges is a 60 year old man with complaints of pain in the right groin region. The pain started spontaneously 6 months ago and is becoming progressively greater. He describes the pain as a sharp stabbing pain in his right groin region. Certain activities aggravates his pain. He states he feels increased pain when he is lying down in bed at night. Activity and exercise such as walking improves his pain slightly. The pain is occasionally aching in nature. The pain when severe radiates anteriorly into his right thigh down to his knee . He states he feels like he walks with a limb.Current pain level is 7/10. Low pain level is 0-1/10. He has history of low back pain for which he had surgery at [facility] with good resolution of symptoms. He has no complaints of low back, radiating pain, numbness or weakness in his lower extremities. He has no history of bladder or bowel incontinence. He states he is very active and goes to the gym and likes to hike . Xray of the right hip shows degenerative changes which are moderate with dystrophic calcifications likely loose bodies. 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 He states he is taking occasional ibuprofen with some pain benefit. He states he has not picked up the prescription for meloxicam yet. Robina Lee MD [address] [place] [address] , [address], [place], [address], [facility] 10/19/2015 09:34:39
== END 2025-06-22 14:41 | disposition home or self-care (01) ==
LOC: HO.HMCC 10:55
PROVIDERS: PCP Internal Medicine; Visit Provider Internal Medicine
DX: Z00.00 Encounter for general adult medical examination without abnormal findings (principal); R73.9 Hyperglycemia, unspecified; E78.5 Hyperlipidemia, unspecified; Z98.890 Other specified postprocedural states